=== PATIENT | male | born 1990 | race Caucasian/White ===

== ENCOUNTER 2016-07-28 22:17 | Emergency (ER) | payer SELFPAY ==
[~2016-07-28] VITALS: Ht 172.7 cm; Wt 78.0 kg
[2016-07-28 22:20] VITALS: Ht 172.7 cm; Wt 78.0 kg
[2016-07-28] MEDS ORDERED: PIPER-TAZO 3.375 GM IV (PMX) 100 ML IVPB STA (23:11)
[2016-07-28] MEDS ORDERED: morphine 4 MG/ML VIAL IV STA (23:11)
[2016-07-28] MEDS ORDERED: VANCOMYCIN 1 GM (PMX) 250 ML IVPB STA (23:11)
[2016-07-28] MEDS ORDERED: ONDANSETRON 4 MG INJ IV STA (23:11)
[2016-07-28] MEDS ORDERED: SODIUM CHLORIDE 0.9% 1L BAG IV* STA (23:11)
[2016-07-28] MEDS ORDERED: CLINDAMYCIN 900 MG/D5W (PMX) 50 ML IVPB STA (23:11)
[2016-07-28] MEDS ORDERED: DIPHTH/TET/ACEL PERTUSS (ADULT) 0.5 ML VIAL IM* ONE (23:30)
--- NOTE | 2016-07-29 00:19 | RADRPT ---
PROCEDURE: XR Chest. CLINICAL INDICATION: Possible Sepsis TECHNIQUE: Single frontal chest x-ray. COMPARISON: None. FINDINGS: There is hypoinflation of the lungs. This accentuates the lung interstitium. Mild interstitial inf iltrates in the lower lungs are possible. The heart does not appear to be grossly enlarged. ECG le ads are projected over the chest.. IMPRESSION: Hypoinflation of the lungs. This accentuates the lung interstitium. Mild interstitial infiltrates in the lower lungs are possible. RPTAT: HJES .Jared Weinstein MD, MD Date Time Electronically viewed and signed by .Jared Weinstein MD, MD on 07/29/2016 00:19 .S/
--- NOTE | 2016-07-29 00:24 | RADRPT ---
PROCEDURE: XR Hand. CLINICAL INDICATION: Pain, swelling TECHNIQUE: Three views of the right hand were obtained. COMPARISON: No prior studies are available for comparison. FINDINGS: Pulse oximeter projected over the distal second finger. Fingers appear to be held in flexion. Othe rwise no osseous abnormality seen. No acute fracture or dislocation is seen. IMPRESSION: Pulse oximeter projected over the distal second finger on all 3 views. Fingers appear to be held in flexion. Otherwise no other osseous abnormality seen. RPTAT: HJES .Jared Weinstein MD, MD Date Time Electronically viewed and signed by .Jared Weinstein MD, MD on 07/29/2016 00:24 .S/
--- NOTE | 2016-07-29 00:25 | RADRPT ---
PROCEDURE: XR Wrist. CLINICAL INDICATION: Pain, swelling TECHNIQUE: AP, lateral and oblique views of the right wrist were performed. COMPARISON: No prior studies are available for comparison. FINDINGS: No evidence of fracture, dislocation, or subluxation is seen. The bones appear well mineralized. The joint spaces are well preserved. The soft tissues appear intact. IMPRESSION: 1. Unremarkable right wrist x-ray series. RPTAT: HJES .Jared Weinstein MD, MD Date Time Electronically viewed and signed by .Jared Weinstein MD, on 07/29/2016 00:25 .S/
[2016-07-29 00:37] LABS: INR 0.87; PROTIME 11.8 Sec (12.2-14.2); PT RATIO 0.9
[2016-07-29 00:38] LABS: ALBUMIN 4.4 g/dl (3.3-4.9); CHLORIDE 96 mmol/L (97-110); PARTIAL THROMBOPLASTIN TIME 30.1 Sec (25.0-35.0); SODIUM 141 mmol/L (135-144)
[2016-07-29 00:39] LABS: ADD UMIC NO; URINE BILIRUBIN (Dip) NEGATIVE (NEGATIVE); URINE BLOOD (Dip) NEGATIVE (NEGATIVE); URINE COLOR YELLOW (YELLOW); URINE GLUCOSE (Dip) NEGATIVE (NEGATIVE); URINE KETONES (Dip) NEGATIVE (NEGATIVE); URINE LEUKOCYTE ESTERASE (Dip) NEGATIVE (NEGATIVE); URINE NITRITE (Dip) NEGATIVE (NEGATIVE); URINE TOTAL PROTEIN (Dip) NEGATIVE (NEGATIVE); URINE UROBILINOGEN (Dip) 1.0 E.U./dL (0.1-1.0)
[2016-07-29 00:41] LABS: ALBUMIN/GLOBULIN RATIO 1.22; ALKALINE PHOSPHATASE 92 IU/L (42-121); ANION GAP 18 (8-16); ASPARTATE AMINO TRANSFERASE 21 IU/L (15-46); BILIRUBIN,INDIRECT 0.2 mg/dl (0-1.1); BILIRUBIN,TOTAL 0.2 mg/dl (0.2-1.3); BLOOD UREA NITROGEN 12 mg/dl (7-20); CARBON DIOXIDE 31 mmol/L (21-31); CREATININE 0.78 mg/dl (0.61-1.24)
[2016-07-29 00:42] LABS: ALANINE AMINOTRANSFERASE 27 IU/L (13-69); BASOPHIL # 0.1 10^3/ul (0.0-0.1); BASOPHILS % 0.5 % (0.0-2.0); CALCIUM 9.4 mg/dl (8.4-10.2); EOSINOPHILS # 0.3 10^3/ul (0.0-0.5); EOSINOPHILS % 2.3 % (0.0-7.0); GLUCOSE 124 mg/dl (70-220); HEMATOCRIT 48.9 % (42.0-52.0); HEMOGLOBIN 16.4 g/dl (14.0-18.0); LYMPHOCYTES # 1.6 10^3/ul (0.8-2.9); MEAN CORPUSCULAR HEMOGLOBIN 29.1 pg (29.0-33.0); MEAN CORPUSCULAR HGB CONC 33.6 g/dl (32.0-37.0); MEAN CORPUSCULAR VOLUME 86.8 fl (82.0-101.0); MEAN PLATELET VOLUME 8.5 fl (7.4-10.4); MONOCYTE # 0.9 10^3/ul (0.3-0.9); MONOCYTES % 6.7 % (0.0-11.0); NEUTROPHIL # 10.5 10^3/ul (1.6-7.5); NEUTROPHILS % 78.5 % (39.0-77.0); PLATELET COUNT 256 10^3/UL (140-440); RED BLOOD COUNT 5.63 10^6/ul (4.70-6.10); RED CELL DISTRIBUTION WIDTH 12.3 % (11.5-14.5); UNCORRECTED WBC 13.4 10^3/ul (4.8-10.8); WHITE BLOOD COUNT 13.4 10^3/ul (4.8-10.8)
[2016-07-29 00:44] LABS: C-REACTIVE PROTEIN 2.2 mg/dl (0.0-0.9)
[2016-07-29 00:52] LABS: CONDITION 1
--- NOTE | 2016-07-29 01:02 | ERA ---
ER Documentation Chief Complaint Date/Time DATE: 07/29/16 TIME: 00:58 Chief Complaint right arm swelling since 4 days agos sustained while screwing the wall HPI 26-year-old male history of IV drug abuse who presents with swelling and pain to his right hand. The patient is right-hand dominant. The patient describes several days of swelling erythema warmth and tenderness diffusely to the hand now with streaking up his forearm. The patient now has flexion of the digits with difficulty extending the digits and pain at the wrist. Pain is moderate and throbbing. He denies any localized injections. However the patient is unreliable and initially told me that he did not use IV drugs. Unknown tetanus status. Pain is now more severe. No reported fever. ROS All systems reviewed and are negative except as per history of present illness. Medications Home Meds Active Scripts Sulfamethoxazole-Trimethoprim* (Bactrim* DS) 800-160 Mg Tab, 1 TAB PO BID for 10 Days, TAB Prov:JUANITO MALDONADO MD 07/29/16 Cephalexin* (Keflex*) 500 Mg Capsule, 500 MG PO QID for 10 Days, CAP Prov:JUANITO MALDONADO MD 07/29/16 Allergies Allergies: Coded Allergies: No Known Allergy (Unverified , 07/28/16) PMhx/Soc Medical and Surgical Hx: pt denies Medical Hx, pt denies Surgical Hx History of Surgery: No Hx Alcohol Use: No Hx Substance Use: No Hx Tobacco Use: Yes Smoking Status: Current every day smoker FmHx Family History: No diabetes Physical Exam Vitals Vital Signs Date Time Temp Pulse Resp B/P Pulse Ox O2 Delivery O2 Flow Rate FiO2 07/29/16 01:17 98.6 07/29/16 01:00 97 18 156/92 100 Room Air 07/29/16 00:15 98 18 151/81 100 Room Air 07/28/16 23:27 95 18 137/87 100 Room Air 07/28/16 22:20 98.0 105 20 157/87 100 Physical Exam General: Well developed, well nourished, no acute distress Head: Normocephalic, atraumatic. Eyes: Pupils equally reactive, EOM intact ENT: Moist mucous membranes Neck: Supple, no lymphadenopathy Respiratory: Lungs clear bilaterally, no distress Cardiovascular: RRR, no murmurs, rubs, or gallops Abdominal: Soft, non-tender, non-distended, no peritoneal signs : Deferred MSK: Right hand with diffuse edema, erythema warmth and tenderness, fingers held in flexion and pain with passive stretch to all digits though inconsistent. Soft tissue swelling noted to the wrist with lymphangitic spread noted to the mid forearm. No obvious drainage, soft compartments. 2+ radial and ulnar pulses. Neurologic: Alert and oriented, moving all extremities, normal speech, no focal weakness, no cerebellar signs Skin: No rash Psych: Normal mood Result Diagram: 07/29/16 0000 07/29/16 0000 Results 24 hrs Laboratory Tests Test 07/28/16 23:55 07/29/16 00:00 Urine Bilirubin NEGATIVE Urine Clarity CLEAR Urine Color YELLOW Urine Glucose NEGATIVE% Urine Hemoglobin NEGATIVE Urine Ketones NEGATIVE Urine Leukocyte Esterase NEGATIVE Urine Nitrite NEGATIVE Urine Specific [place] >=1.030 Urine Total Protein NEGATIVE Urine Urobilinogen 1.0 E.U./dL Urine pH 5.5 Activated Partial Thromboplast Time 30.1Sec Alanine Aminotransferase (ALT/SGPT) 27IU/L Albumin 4.4g/dl Albumin/Globulin Ratio 1.22 Alkaline Phosphatase 92IU/L Anion Gap 18 Aspartate Amino Transf (AST/SGOT) 21IU/L Basophils # 0.110^3/ul Basophils % 0.5% Blood Urea Nitrogen 12mg/dl C-Reactive Protein 2.2mg/dl Calcium Level 9.4mg/dl Carbon Dioxide Level 31mmol/L Chloride Level 96mmol/L Creatinine 0.78mg/dl Direct Bilirubin 0.00mg/dl Eosinophils # 0.310^3/ul Eosinophils % 2.3% Globulin 3.60g/dl Glucose Level 124mg/dl Hematocrit 48.9% Hemoglobin 16.4g/dl INR International Normalized Ratio 0.87 Indirect Bilirubin 0.2mg/dl Lactic Acid Level 2.2mmol/L Lymphocytes # 1.610^3/ul Lymphocytes % 12.0% Mean Corpuscular Hemoglobin 29.1pg Mean Corpuscular Hemoglobin Concent 33.6g/dl Mean Corpuscular Volume 86.8fl Mean Platelet Volume 8.5fl Monocytes # 0.910^3/ul Monocytes % 6.7% Neutrophils # 10.510^3/ul Neutrophils % 78.5% Nucleated Red Blood Cells # 0.010^3/ul Nucleated Red Blood Cells % 0.0/100WBC Platelet Count 75890^3/UL Potassium Level 4.0mmol/L Prothrombin Time 11.8Sec Prothrombin Time Ratio 0.9 Red Blood Count 5.6310^6/ul Red Cell Distribution Width 12.3% Sodium Level 141mmol/L Total Bilirubin 0.2mg/dl Total Protein 8.0g/dl Troponin I < 0.012ng/ml White Blood Count 13.410^3/ul Current Medications Medications (Trade) Dose Ordered Sig/Dwayne Route PRN Reason Start Time Stop Time Status Last Admin Dose Admin Sodium Chloride 2420 ml 2,420 ml BOLUS OVER 2 HOURS STAT IV* 07/28/16 23:11 07/28/16 23:14 DC 07/29/16 00:52 Vancomycin HCl 250 ml @ 125 mls/hr ONCE STAT IVPB 07/28/16 23:11 07/29/16 01:10 DC Clindamycin HCl/ Dextrose 50 ml @ 50 mls/hr ONCE STAT IVPB 07/28/16 23:11 07/29/16 00:10 DC 07/29/16 00:52 Piperacillin Sod/ Tazobactam Sod (Zosyn 3.375gm/ 100 ml (Pmx)) 100 ml @ 100 mls/hr ONCE STAT IVPB 07/28/16 23:11 07/29/16 00:10 DC Diphtheria/ Tetanus/Acell Pertussis (Adacel) 0.5 ml ONCE ONCE IM* 07/28/16 23:30 07/28/16 23:31 DC 07/29/16 00:57 Morphine Sulfate (morphine) 4 mg ONCE STAT IV 07/28/16 23:11 07/28/16 23:15 DC Ondansetron HCl (Zofran Inj) 4 mg ONCE STAT IV 07/28/16 23:11 07/28/16 23:15 DC Procedures/MDM EKG, MONITORS, & DIAGNOSTIC IMAGING: EKG: I reviewed and interpreted a 12-lead EKG. Rhythm: Normal sinus rhythm Ectopy: None Intervals: No abnormalities ST segments: No elevations or depressions T waves: No contiguous inversions Chest x-ray: I reviewed and interpreted a 1 view of the chest Mediastinum: No enlargement Cardiac silhouette: No cardiomegaly Airspace: Clear lung hussein bilaterally without evidence of pneumothorax Bones: No evidence of fracture X-ray right hand: I reviewed and interpreted multiple views of the x-ray Bones: No evidence of acute fracture dislocation or subluxation Soft tissue: No evidence of foreign body LAB INTERPRETATION: Leukocytosis, borderline lactic acid MEDICAL DECISION MAKING: The patient presents with clinical signs and symptoms concerning for right hand cellulitis. The patient does have flexion of the fingers and mild pain with passive stretch of the fingers which does raise the concern for possible flexor process. His clinical exam is not necessarily consistent with flexor tenosynovitis however deep space infection is somewhat concerning. This is possibly related to IV drug abuse. The patient will benefit from broad- spectrum antibiotics. Given that this involves his hand, dominant hand, the patient will benefit from transfer for evaluation with hand surgeon. I am not sure that the patient necessarily requires surgery but absolutely requires a hand surgical evaluation and if symptoms worsen despite antibiotics the patient will absolutely require surgical intervention and debridement. ER COURSE: Blood cultures have been taken, patient given 30/kg of saline. Patient given vancomycin, Zosyn, clindamycin pain medication and tetanus updated. The patient technically meets SIRS criteria with source. The patient's lactic acid is greater than 2 consistent with severe sepsis, no evidence of septic shock. The patient will benefit from persistent fluids and transfer for hand surgery evaluation. I do not have a hand surgeon available at my facility. I have attempted to reach out to [facility]. However they do not have any beds of any of the [facility] facilities. I attempted to reach out to my orthopedic surgeon for possible consultation however Dr. Muñoz states that he does not take care of hands. Patient is self-pay. We will attempt to call other facilities. I had an honest conversation with the patient discussing her difficulties finding transfer. I advised him that it may take hours if not days to try to transfer. I cannot admit the patient to my facility given no hand surgeon available. The patient does not want to wait for transfer at this time. He will sign out AGAINST MEDICAL ADVICE. The patient was advised of the risk benefits and alternatives and states understanding. A document has been signed and placed in the chart. The patient will be discharged with antibiotics and I strongly advised that he seeks care as soon as possible including return to my emergency room for any worsening symptoms. I kept the patient and/or family informed of laboratory and diagnostic imaging results throughout the emergency room course. DISPOSITION PLAN: Leaving AMA CONSULTATION: [facility] and orthopedic surgeon Dr. Muñoz Sepsis Documentation: Patient's infectious symptoms have not stabilized and the patient is at risk of rapid decompensation. The patient will be admitted for careful hydration, antibiotic therapy, and infectious source control. SEVERE SEPSIS CRITERIA: Infectious source: Right hand cellulitis End organ damage indicated by: [Lactate > 2.0 mmol/L SEPSIS MANAGEMENT Time of recognition of severe sepsis/septic shock: Upon arrival 3 HOUR BUNDLE Blood cultures x 2 before broad-spectrum antibiotics: Yes 30 ml/kg NS bolus Completed Initial lactate 2.2 Repeat lactate pending repeat SEPTIC SHOCK ASSESSMENT: No lactic acid > 4.0 No persistent hypotension (SBP < 90 or 40 mmHg drop, MAP < 65) despite 30 mL/kg IV fluid bolus VOLUME REASSESSMENT FOR SEPTIC SHOCK: Reevaluation Time: 1:50 AM Temp of 90.6 heart rate 97 respiratory rate 18 blood pressure 156/92 pulse ox 100% on room air Heart Regular rate & rhythm Lungs No crackles Skin Warm & dry Cap Refill Less than 2 seconds Peripheral pulses Radially present PERSISTENT HYPOTENSION TREATMENT: Comfort care No Central line Not Required Vasopressor started Not required I considered further perfusion assessment with CVP measurement, SCVO2, bedside ultrasound volume assessment, passive leg raise, trial of further fluid bolus. And proceeded with 30 ml/kg fluid bolus of NSS, broad spectrum antbiotics, and admission. CRITICAL CARE Critical care time 35 minutes Emergent fluid management while maintaining close respiratory support. Provision of immediate and broad-spectrum antibiotic therapy. Simultaneous assessment for possible sources in order to direct targeted therapy. Consideration for invasive and chemical support to prevent cardiopulmonary collapse. Critical care time is independent of procedures performed. Departure Diagnosis: Primary Impression: Cellulitis of right hand Additional Impressions: Severe sepsis IV drug abuse Condition: JUANITO Cook MD Jul 29, 2016 01:01
[2016-07-29 01:41] LABS: TROPONIN-I < 0.012 ng/ml (0.00-0.12)
[2016-07-29] MEDS ORDERED: BACTDS PO (01:46)
[2016-07-29] MEDS ORDERED: CEPH-443 PO (01:46)
[2016-07-29 05:59] VITALS: BP 155/89; PULSE 103; RESP 18; TEMP 98.2
== END 2016-07-29 05:59 | disposition left against medical advice (07) ==
LOC: E/R 22:17
DX: L03.113 Cellulitis of right upper limb (principal); F17.210 Nicotine dependence, cigarettes, uncomplicated; R65.20 Severe sepsis without septic shock; F15.10 Other stimulant abuse, uncomplicated; Z23 Encounter for immunization
CPT/HCPCS: 36415; 71010; 73110; 73130; 80053; 81003; 83605; 84484; 85025; 85610; 85651; 85730; 86140; 87040; 87086; 90471; 90715; 93005; 96365; 96366; 96367; 99291; J2543; J3370; J7030

== ENCOUNTER 2016-11-09 21:16 | Emergency (ER) | payer MEDICAID ==
[~2016-11-09] VITALS: Ht 177.8 cm; Wt 77.0 kg
[~2016-11-09 21:16] MED LIST: BACTDS PO; CEPH-443 PO
[2016-11-09 21:19] VITALS: Ht 177.8 cm; Wt 77.0 kg
[2016-11-09] MEDS ORDERED: ONDANSETRON (ODT) 4 MG TAB ODT STA (22:14)
[2016-11-09] MEDS ORDERED: HYDROCODONE/APAP (5/325) TAB PO ONE (22:30)
--- NOTE | 2016-11-09 22:46 | RADRPT ---
PROCEDURE: Left rib x-rays CLINICAL INDICATION: Chest pain. TECHNIQUE: 2 views of the left ribs. COMPARISON: None available. FINDINGS: There are fractures of the left fifth and sixth ribs. There is no pneumothorax. The visualized kerry gs are clear. The cardiac silhouette is not enlarged. There is no pleural effusion. IMPRESSION: 1. Left fifth and sixth rib fractures. 2. No pneumothorax. RPTAT: HTAR .Reji Lagos MD, MD Date Time Electronically viewed and signed by .Reji Lagos MD, on 11/09/2016 22:46 .R/
[2016-11-09] MEDS ORDERED: NAPR-260 PO (23:08)
[2016-11-09] MEDS ORDERED: HYDR-906 PO (23:08)
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
== END 2016-11-09 23:28 | disposition home or self-care (01) ==
LOC: FTE 21:16
DX: S22.32XA Fracture of one rib, left side, initial encounter for closed fracture (principal); F17.210 Nicotine dependence, cigarettes, uncomplicated; V13.4XXA Pedal cycle driver injured in collision with car, pick-up truck or van in traffic accident, initial encounter; Y92.410 Unspecified street and highway as the place of occurrence of the external cause
CPT/HCPCS: 71100; Z7502; Z7610

== ENCOUNTER 2018-06-01 14:14 | Emergency (ER) | END 2018-06-01 16:25 | disposition home or self-care (01) ==